=== PATIENT | female | born 1990 | race Caucasian/White ===

== ENCOUNTER 2017-01-30 10:45 | Emergency (ER) | payer MEDICAID ==
[2015-06-25 12:20] VITALS: BMI 32.7
[~2017-01-30 10:45] MED LIST: CIPRO500 MG PO; CYTOTEC100 MCG PO; VALIUM5 MG PO; VISTARIL25 MG PO; XANAX1 MG PO; ZANAFLEX4 MG PO; ZOLOFT20 MG/ML
== END 2017-01-30 12:04 | disposition home or self-care (01) ==
LOC: D.ER 10:45
DX: J06.9 Acute upper respiratory infection, unspecified (principal); J01.90 Acute sinusitis, unspecified; J20.9 Acute bronchitis, unspecified

== ENCOUNTER 2017-04-10 10:57 | Emergency (ER) | payer MEDICAID ==
[2015-06-25 12:20] VITALS: BMI 32.7
== END 2017-04-10 13:25 | disposition home or self-care (01) ==
LOC: D.ER 10:57
DX: J20.9 Acute bronchitis, unspecified (principal); J06.9 Acute upper respiratory infection, unspecified; F17.200 Nicotine dependence, unspecified, uncomplicated

== ENCOUNTER 2019-10-25 02:11 | Emergency (ER) | payer OTHER ==
[~2019-10-25] VITALS: Ht 154.9 cm; Wt 87.3 kg
[2019-10-25 02:15] VITALS: BP 126/90; Ht 154.9 cm; Wt 87.3 kg
[2019-10-25] MEDS ORDERED: VISTARIL25 MG (02:16)
[2019-10-25] MEDS ORDERED: PAXIL20 MG PO (02:25)
[2019-10-25] MEDS ORDERED: TRILEPTAL300 MG (02:25)
[2019-10-25] MEDS ORDERED: TRILEPTAL300 MG PO (02:26)
[2019-10-25] MEDS ORDERED: ZOFRAN ODT4 MG/UDTAB PO (03:28)
--- NOTE | 2019-10-25 03:28 | NUR ---
DR. ROSENTHAL NOTIFIED AND REVIEWED PT'S BEHAVIOR AND ASSESSMENT RESULTS. PT IS A LOW RISK PER DR. ROSENTHAL. DR. ROSENTHAL STATED TO GIVE RESOURCES TO PT AT TIME OF DISCHARGE. NO FURTHER ORDERS AT THIS TIME. RESOURCES REVIWED WITH PT AND HE VERBALIZED UNDERSTANDING.
== END 2019-10-25 03:33 | disposition home or self-care (01) ==
LOC: D.ER 02:11
DX: R11.2 Nausea with vomiting, unspecified (principal); F31.9 Bipolar disorder, unspecified

== ENCOUNTER 2019-11-16 12:40 | Emergency (ER) | payer OTHER ==
[~2019-11-16] VITALS: Ht 154.9 cm; Wt 87.7 kg
[~2019-11-16 12:40] MED LIST changes: +PAXIL20 MG PO; +TRILEPTAL300 MG; +TRILEPTAL300 MG PO; +VISTARIL25 MG; +ZOFRAN ODT4 MG/UDTAB PO
[2019-11-16 12:50] VITALS: Ht 154.9 cm; Wt 87.7 kg
[2019-11-16 13:09] LABS: BILIRUBIN NEGATIVE (NEGATIVE); GLUCOSE NEGATIVE (NEGATIVE); KETONE NEGATIVE (NEGATIVE); NITRITE NEGATIVE (NEGATIVE); UROBILINOGEN NORMAL (NORMAL)
[2019-11-16 13:19] LABS: BACTERIA FEW /hpf (NEGATIVE); EPITHELIAL CELLS 0-5 /hpf (0-5); RED CELLS - URINE 0-5 /hpf (0-5); WHITE CELLS - URINE 0-5 /hpf (NEGATIVE)
[2019-11-16 14:40] LABS: BASOPHILS 0.2 % (0-2); EOSINOPHILS 0.2 % (0-7); IMMATURE GRANULOCYTES 0.2 % (0-5); LYMPHOCYTES 24.7 % (15-50); MCH 28.3 pg (26.0-34.0); MCHC 31.7 g/dL (31.0-37.0); MCV 89.3 fL (80.0-100.0); MEAN PLATELET VOLUME 9.7 fL (7.4-10.4); MONOCYTES 9.1 % (2-11); NEUTROPHILS 65.6 % (40-80); PLATELET COUNT 268 10x3/uL (130-400); RBC 4.59 10x6/uL (4.00-5.40); RDW 13.3 % (11.5-14.5); WBC 6.4 10x3/uL (4.8-10.8)
[2019-11-16 14:53] LABS: CALC OSMOLALITY 276 mosm/kg (275-300); CALCIUM 9.4 mg/dL (8.5-10.1); CARBON DIOXIDE 30.7 mmol/L (21.0-32.0); CHLORIDE - SERUM 105 mmol/L (98-107); CREATININE - SERUM 0.7 mg/dL (0.6-1.3); GLUCOSE 73 mg/dL (74-106); POTASSIUM - SERUM 3.6 mmol/L (3.5-5.1); SODIUM 139 mmol/L (136-145); UREA NITROGEN 13 mg/dL (7-18); eGFR NON AFRICAN AMERICAN > 90 mL/min (90-120)
[2019-11-16 15:01] LABS: ALBUMIN 3.5 g/dL (3.4-5.0); ALKALINE PHOSPHATASE 50 U/L (30-120); ALT (SGPT) 24 U/L (10-68); AMYLASE - SERUM 85 U/L (25-115); BILIRUBIN - TOTAL 0.24 mg/dL (0.2-1.3); LIPASE 175 U/L (73-393); PROTEIN - SERUM 7.3 g/dL (6.4-8.2)
[2019-11-16 15:09] LABS: TROPONIN-I < 0.017 ng/mL (0.000-0.060)
[2019-11-16 16:41] LABS: HCG SERUM NEGATIVE (NEGATIVE)
[2019-11-16] MEDS ORDERED: CARAFATE1 G PO (17:50)
[2019-11-16] MEDS ORDERED: KEFLEX500 MG PO (17:50)
[2019-11-16] MEDS ORDERED: OMEPRAZOLE20 M1 PO (17:50)
[2019-11-16 18:01] VITALS: BP 119/79
== END 2019-11-16 18:02 | disposition home or self-care (01) ==
LOC: D.ER 12:40
PROVIDERS: Family Medicine
DX: R10.13 Epigastric pain (principal); K29.70 Gastritis, unspecified, without bleeding; N39.0 Urinary tract infection, site not specified